=== PATIENT | female | born 1955 | race Caucasian/White ===

== ENCOUNTER 2017-03-31 15:34 | Observation (INO) | payer MEDICAID, SELFPAY ==
[2017-03-31] VITALS (9 sets, daily range): BP systolic 96–133; BP diastolic 50–69; PULSE 57–82; RESP 16–146; TEMP 36.2–36.9; O2SAT 96–100; BMI 24.5
--- NOTE | 2017-03-31 10:02 | EKG12_ITS ---
Test Reason : PRE OP Blood Pressure : / mmHG Vent. Rate : 082 BPM Atrial Rate : 082 BPM P-R Int : 170 ms QRS Dur : 084 ms QT Int : 364 ms P-R-T Axes : 072 -02 042 degrees QTc Int : 425 ms Normal sinus rhythm Normal ECG When compared with ECG of 28-JUL-2014 15:17, No significant change was found Confirmed by JEAN CLAUDE LOPEZ ([id number]), avid editor CHRISSIE AYÑEZ ([id number] on 04/05/2017 2:23:11 PM Referred By: MYA Confirmed By:JEAN CLAUDE LOPEZ
[2017-03-31] MEDS: Phenazopyridine 95 MG Tablet 190 MG PO (10:15)
[2017-03-31 10:50] LABS: Hematocrit 36.4 % (37-47); Mean Corpuscular Hgb 31.1 pg (27.0-32.0); Mean Corpuscular Volume 94.3 fL (81-99); Mean Platelet Vol. 8.3 fl (6.2-12.0); Platelet Count 152 K/mm3 (150-450); RBC Distribution Width CV 13.5 % (11.6-14.6); RBC Distribution Width SD 46.3 fl (35.1-43.9); Red Blood Count 3.86 M/mm3 (4.2-5.4); White Blood Count 3.9 K/mm3 (4.4-11.0)
[2017-03-31 10:51] LABS: Scan Indicated on CBC? Y/N NO
[2017-03-31 10:57] LABS: International Normalized Ratio 1.1; Prothrombin Time (Protime)PT. 13.6 SECONDS (11.7-14.9)
[2017-03-31 10:58] LABS: Partial Thromboplast Time 31.6 Seconds (24.1-36.2)
[2017-03-31 11:03] LABS: AST(SGOT) 13 U/L (15-37); Albumin, Serum 3.5 g/dL (3.4-5.0); Alkaline Phosphatase 73 U/L (45-117); Globulin 3.3 g/dL (2.3-3.5); Protein, Total 6.8 g/dL (6.4-8.2)
[2017-03-31 11:04] LABS: Alanine Aminotransfer ALT/SGPT 17 U/L (12-78); Bilirubin, Direct 0.11 mg/dL (0.00-0.30)
[2017-03-31] MEDS: Bupiv/Epi 0.5% Mpf 30 ML Vial (15:59)
[2017-03-31] MEDS: Ketorolac 30 MG/ML Syringe IV ×2 (16:01→21:32)
[2017-03-31] MEDS: HYDROcodone Bitartrate/Apap 5/325 Tablet PO (18:39)
[2017-03-31] MEDS: 0.9% NaCl Peripheral Flush Adult/Peds IV (21:32)
[2017-03-31] MEDS: Lactated Ringers 1,000 ML 75 ML IV (22:29)
[2017-04-01 02:15] VITALS: BP 121/68; PULSE 78; RESP 16; TEMP 37; O2SAT 98
[2017-04-01] MEDS: HYDROcodone Bitartrate/Apap 5/325 Tablet PO ×2 (02:26→09:23)
[2017-04-01] MEDS: Ketorolac 30 MG/ML Syringe IV (05:37)
--- NOTE | 2017-04-01 07:02 | PCM.DC.GS ---
Discharge Diet: No Restrictions Discharge Activity: Return to Normal Activity, May not drive while taking narcotic pain medications. May shower in (days): 1 Weight Bearing Status: Full weight bearing Call your doctor if your incision/area has: Continuous Slow Oozing, Sudden Increased Bleeding, Increased Pain/ Swelling, Increased Redness, Foul Smelling Discharge, Swelling at the incision site Call your doctor if you observe: Fever of 101 or Higher, Coldness, Increased Pain, Numbness or Tingling, Change in Color, Inability to have a bowel movement, Using more than one pad per hour, Shortness of breath, Dizziness, Fainting spells, Swelling in the ankles, Chest pain, Prolonged hiccoughing, Increased palpitations (irregular heartbeat), Calf discomfort, Uncontrolled pain Suture Line Care: Avoid Pulling/Pushing Cleanse incision/area with: Soap & Water Catheter: Murray to leg bag, Murray to large bag - at night Allergies/Adverse Reactions: Allergies No Known Allergies Allergy (Verified 03/24/17 11:01) Medications to take at Discharge Multivitamins,Ther W-Minerals [Multivitamin With Minerals] 1 tablet PO DAILY 07/28/14 Sertraline HCl [Zoloft] 50 mg PO DAILY 07/28/14 Iron Polysaccharide Complex [Ferrex 150] 150 mg PO DAILYCM 02/26/16 Lorazepam [Ativan] 0.5 mg PO Q6H PRN PRN 02/29/16 Oxybutynin [Ditropan] 5 mg PO BID 06/01/16 DiphenhydrAMINE [Benadryl] 25 mg PO BID PRN PRN 03/24/17 Estradiol [Estrace Vaginal Cream] 1 dose VAGINAL DAILY 03/24/17 Levocetirizine Dihydrochloride [Xyzal] 5 mg PO DAILY 03/31/17 Please follow up with your Primary Care Physician in: Sandy Garza MD [phone] When: 3-4 weeks for cystoscopy and murray removal in [place] Office Proposed Discharge Date: 04/01/17
--- NOTE | 2017-04-01 07:07 | DCINST_ITS ---
Discharge Diet: No Restrictions Discharge Activity: Return to Normal Activity, May not drive while taking narcotic pain medications. May shower in (days): 1 Weight Bearing Status: Full weight bearing Call your doctor if your incision/area has: Continuous Slow Oozing, Sudden Increased Bleeding, Increased Pain/ Swelling, Increased Redness, Foul Smelling Discharge, Swelling at the incision site Call your doctor if you observe: Fever of 101 or Higher, Coldness, Increased Pain, Numbness or Tingling, Change in Color, Inability to have a bowel movement , Using more than one pad per hour, Shortness of breath, Dizziness, Fainting spells, Swelling in the ankles, Chest pain, Prolonged hiccoughing, Increased palpitations (irregular heartbeat), Calf discomfort, Uncontrolled pain Suture Line Care: Avoid Pulling/Pushing Cleanse incision/area with: Soap & Water Catheter: Murray to leg bag, Murray to large bag - at night Allergies/Adverse Reactions: Allergies No Known Allergies Allergy (Verified 03/24/17 11:01) Medications to take at Discharge Multivitamins,Ther W-Minerals [Multivitamin With Minerals] 1 tablet PO DAILY Sertraline HCl [Zoloft] 50 mg PO DAILY 07/28/14 Iron Polysaccharide Complex [Ferrex 150] 150 mg PO DAILYCM 02/26/16 Lorazepam [Ativan] 0.5 mg PO Q6H PRN PRN 02/29/16 Oxybutynin [Ditropan] 5 mg PO BID 06/01/16 DiphenhydrAMINE [Benadryl] 25 mg PO BID PRN PRN 03/24/17 Estradiol [Estrace Vaginal Cream] 1 dose VAGINAL DAILY 03/24/17 Levocetirizine Dihydrochloride [Xyzal] 5 mg PO DAILY 03/31/17 Please follow up with your Primary Care Physician in: Sandy Garza MD When: 3-4 weeks for cystoscopy and murray removal in [place] Office Proposed Discharge Date: 04/01/17
--- NOTE | 2017-04-01 07:07 | PCM.OP.BLANK ---
Problem List (1) Vesicovaginal fistula Status: Chronic Operative Report Date of Procedure: 03/31/17 Procedure: Vesicovaginal Fistula Repair via Laparotomy and cystoscopy Findings: Bilateral UO's patent at completion of procedure. Dime size vesicovaginal fistula noted at apex of irradiated vagina. EBL: 50 cc Specimens: None Drains: Murray Anesthesia: GETA Surgeon: Sandy Graza MD [employer] Operations Consultant: LATASHA Stern Procedure details: The patient was taken to the operating room where general anesthesia was initiated. The patient was placed in dorsal lithotomy position and prepped and draped in sterile fashion. A surgical time-out occurred. An pelvic exam was performed and the patient was noted to have a heavily irradiated vagina with little laxity. The vagina was cone shaped and a dime sized vesicovaginal fistula was noted at the apex of the vagina. Cystoscopy was performed and a pickup was passed thru the fistula into the bladder confirming the communication. Both ureteral orifices were noted to be spilling Pyridium stained urine bilaterally. The decision was made to proceed with a laparotomy. A Pfannenstiel low abdominal incision was made with a 10 blade scalpel. The incision was carried through the subcutaneous tissue and the fascia was incised. The fascial incision was extended bilaterally and the rectus abdominus muscle was dissected off the fascial superiorly and inferiorly with Metzenbaum scissors and electrocautery. The muscle was split in the middle and peritoneum was entered using Metzenbaum scissors. The bowel was packed in the upper abdomen exposing the cul-de-sac and sacral promontory and an O'Huber/O'Erik retractor was used for retraction. The bladder was then identified and was noted to be densely adhesed to the vagina below. After several failed attempts to dissect the bladder of the vagina, two 2-O silk sutures were passed through the dome of the bladder for traction and an incision was made in the bladder dome until the bladder was entered. The incision was carried down to the level of the vagina where the fistula was identified sitting between the two ureteral orifices. The bladder and fistula were then undermined with scissors and scalpel sharply to free up the edges for a tension free closure. Several interrupted 4-O Vicryl sutures were used to close the incision starting at the apex of the fistula (edges were freshened sharply) and the ureteral orifices were observed for spill. No spill was seen from the left ureter so the sutures were removed. The ureter on the left began to spill again. Two whistle tip catheters were passed into the urethral orifices bilaterally in order to visualize the orifices with ease. The bladder mucosa was then closed with interrupted 4-O Vicryl suture. Prior to closing the last of the bladder incision, the Whistle tip catheters were removed. The bladder serosa was then closed in a similar fashion. Hemostasis was obtained. The bladder appeared to be water tight. While the surgical device sales representative observed from above, a cystoscopy was passed and with D50 50 cc injected into the bladder, bilateral efflux of urine was seen from each ureteral orifice. The bladder distended and appeared water tight abdominally. All the packing was removed. The fascia was closed using 0 Vicryl in a running fascia from both sides and was tied in the middle. Subcutaneous tissue was closed using 3-0 Vicryl and the skin was closed using 4-0 Monocryl in subcuticular fashion. Anesthesia was discontinued. All needle, instrument, and sponge counts were correct x 2. The patient was taken to recovery room in stable condition draining clear urine from her Murray catheter. The vagina was packed with Kerlex gauze soaked in estrogen cream. Anesthesia was discontinued. All needle, instrument, and sponge counts were correct x 2. The patient was taken to recovery room in stable condition draining reddish yellow urine from her murray catheter.
--- NOTE | 2017-04-01 07:25 | PCM.PN.SRG ---
Subjective: Doing well POD 1 s/p vesicovaginal fistula repair via laparotomy and cystoscopy - Physical Exam General: Alert, Oriented x3, Cooperative, No apparent distress HEENT: Atraumatic, Normocephalic Oral: Moist Mucosa Neck: Supple Lungs: Clear to auscultation, Normal air movement, No rhonchi, No wheeze, No rales Cardiovascular: Regular rate, Regular Rhythm, Normal S1, No murmurs, No rub noted, No Gallop Abdomen: Bowel Sounds Present, Soft, Non Tender, Non-Distended Extremities: No clubbing, No cyanosis, No edema Skin: No rashes, No breakdown, Incision - Clean, dry and intact Musculoskeletal: No Tenderness to Palpation of Joints or Extremities Vital Signs Temp Pulse Resp BP Pulse Ox 98.6 F 78 16 121/68 98 04/01/17 02:15 04/01/17 02:15 04/01/17 02:15 04/01/17 02:15 04/01/17 02:15 Oxygen Delivery Method Room Air Weight: 60.9 kg Body Mass Index (BMI) 24.5 Intake and Output for Last 24 Hours 03/30/17 03/31/17 04/01/17 23:59 23:59 23:59 Intake Total 2960 775 Output Total 800 1400 Balance 2160 -625 Laboratory Tests Past 24 Hrs 03/31/17 03/31/17 03/31/17 10:40 10:40 10:40 WBC 3.9 L RBC 3.86 L Hgb 12.0 Hct 36.4 L MCV 94.3 MCH 31.1 MCHC 33.0 RDW 13.5 RDW Differential 46.3 H Plt Count 152 MPV 8.3 PT 13.6 INR 1.1 APTT 31.6 Total Bilirubin 0.40 Direct Bilirubin 0.11 AST 13 L ALT 17 Alkaline Phosphatase 73 Total Protein 6.8 Albumin 3.5 Globulin 3.3 Assessment/Plan Doing well POD1. Discharge home today with abdominal binder, murray bag and large bag. Rx on chart. Followup in 3-4 weeks for cystoscopy and Murray removal.
[2017-04-01 08:15] VITALS: BP 100/51; PULSE 80; RESP 18; TEMP 36.8; O2SAT 98
[2017-04-01] MEDS: Sertraline 50 MG Tablet PO (09:30)
[2017-04-01 09:32] VITALS: BP 100/57; PULSE 80; RESP 18; TEMP 36.8; O2SAT 98
--- NOTE | 2017-04-04 14:03 | CASEMGMT ---
Post-discharge call completed. Patient expressed understanding of home care and discharge instructions.
== END 2017-04-01 10:04 | disposition home or self-care (01) ==
PROVIDERS: Anesthesiology; Admitting Provider Obstetrics & Gynecology; Family Provider Family Medicine; PCP Family Medicine; Visit Provider Obstetrics & Gynecology
DX: N82.0 Vesicovaginal fistula (principal); F41.9 Anxiety disorder, unspecified; F32.9 Major depressive disorder, single episode, unspecified; D50.9 Iron deficiency anemia, unspecified; Z87.891 Personal history of nicotine dependence; Z85.41 Personal history of malignant neoplasm of cervix uteri; Z85.89 Personal history of malignant neoplasm of other organs and systems; Z79.899 Other long term (current) drug therapy
CPT/HCPCS: 00860; 51900; 80076; 85027; 85610; 85730; 93005; 96361; 96374; 96376; 96523; 99218; J7120; A4216; C1758; G0378; G0379; J1940; J2405

== ENCOUNTER 2017-07-13 10:00 | Outpatient (RCR) | payer MEDICAID, SELFPAY ==
[2017-07-10 00:41] VITALS: BP 128/62; PULSE 78; RESP 16; TEMP 36.4
[2017-07-11 11:59] VITALS: BP 119/75; BP 120/73; PULSE 92; RESP 16; TEMP 37; TEMP 37.1
--- NOTE | 2017-07-11 13:21 | HBO.PN.PCM_ITS ---
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 Tolerance of hyperbaric oxygen therapy: Hyperbaric oxygen therapy was administered as per the facility's protocol. Today represents the 34th such hyperbaric oxygen session. The patient tolerated hyperbaric oxygen therapy well , without complications or complaints. Upon emergence from the hyperbaric chamber, the patient's vital signs remained stable. The patient was discharged in good condition. 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 radiation therapy (Chronic) History of cancer chemotherapy (Chronic) Hx of cervical cancer (Chronic) Vaginal bleeding (Chronic) Vesicovaginal fistula (Chronic) Allergies/Adverse Reactions: Allergies No Known Allergies Allergy (Verified 05/05/17 12:44) Home Medications: Ambulatory Orders Medication Instructions Recorded Multivitamins,Ther W-Minerals 1 tablet PO DAILY 07/28/14 [Multivitamin With Minerals] Sertraline HCl [Zoloft] 50 mg PO DAILY 07/28/14 Iron Polysaccharide Complex 150 mg PO DAILYCM 02/26/16 [Ferrex 150] Lorazepam [Ativan] 0.5 mg PO Q6H PRN PRN 02/29/16 Oxybutynin [Ditropan] 5 mg PO BID 06/01/16 DiphenhydrAMINE [Benadryl] 25 mg PO BID PRN PRN 03/24/17 Levocetirizine Dihydrochloride 5 mg PO DAILY 03/31/17 [Xyzal] Maternal Family History: No pertinent history Paternal Family History: No pertinent history Smoking Status: Former smoker Tobacco Use: Non-smoker Physical Exam Vital Signs Temp Pulse Resp BP 97.6 F L 78 16 128/62 H 07/10/17 00:41 07/10/17 00:41 07/10/17 00:41 07/10/17 00:41 General: Alert, Oriented x3, Cooperative, No apparent distress, Well developed, Well nourished HEENT: Atraumatic, PERRLA, EOMI, Normocephalic Lungs: Normal air movement Psych/Mental Status: Normal Affect, Appropriate, Alert and oriented to time, place, person, mood and affect Assessment/Plan The patient appears to be doing well. Hyperbaric oxygen therapy will continue as per the patient's medical plan.
[2017-07-12 11:00] VITALS: BP 124/71; BP 134/85; PULSE 79; PULSE 87; RESP 16; RESP 20; TEMP 36.3; TEMP 37.6
--- NOTE | 2017-07-12 17:40 | HBO.PN.PCM_ITS ---
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 Tolerance of hyperbaric oxygen therapy: Hyperbaric oxygen therapy was administered as per the facility's protocol. The patient tolerated hyperbaric oxygen therapy well, without complications or complaints. Upon emergence from the hyperbaric chamber, the patient's vital signs remained stable. The patient was discharged in good condition. 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 radiation therapy (Chronic) History of cancer chemotherapy (Chronic) Hx of cervical cancer (Chronic) Vaginal bleeding (Chronic) Vesicovaginal fistula (Chronic) Allergies/Adverse Reactions: Allergies No Known Allergies Allergy (Verified 05/05/17 12:44) Home Medications: Ambulatory Orders Medication Instructions Recorded Multivitamins,Ther W-Minerals 1 tablet PO DAILY 07/28/14 [Multivitamin With Minerals] Sertraline HCl [Zoloft] 50 mg PO DAILY 07/28/14 Iron Polysaccharide Complex 150 mg PO DAILYCM 02/26/16 [Ferrex 150] Lorazepam [Ativan] 0.5 mg PO Q6H PRN PRN 02/29/16 Oxybutynin [Ditropan] 5 mg PO BID 06/01/16 DiphenhydrAMINE [Benadryl] 25 mg PO BID PRN PRN 03/24/17 Levocetirizine Dihydrochloride 5 mg PO DAILY 03/31/17 [Xyzal] Maternal Family History: No pertinent history Paternal Family History: No pertinent history Smoking Status: Former smoker Tobacco Use: Non-smoker Physical Exam Vital Signs Temp Pulse Resp BP 99.6 F H 87 16 124/71 H 07/12/17 11:00 07/12/17 11:00 07/12/17 11:00 07/12/17 11:00 General: Alert, Oriented x3, Cooperative, No apparent distress HEENT: Atraumatic, Normocephalic Lungs: Normal air movement Cardiovascular: Regular rate Psych/Mental Status: Normal Affect Assessment/Plan The patient appears to be doing well. Hyperbaric oxygen therapy will continue as per the patient's medical plan.
[2017-07-13 09:57] VITALS: BP 116/66; BP 137/77; PULSE 75; PULSE 99; RESP 16; RESP 20; TEMP 36.1; TEMP 36.6
--- NOTE | 2017-07-13 10:54 | HBO.PN.PCM_ITS ---
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 Tolerance of hyperbaric oxygen therapy: Hyperbaric oxygen therapy was administered as per the facility's protocol. The patient tolerated hyperbaric oxygen therapy well, without complications or complaints. Upon emergence from the hyperbaric chamber, the patient's vital signs remained stable. The patient was discharged in good condition. 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 radiation therapy (Chronic) History of cancer chemotherapy (Chronic) Hx of cervical cancer (Chronic) Vaginal bleeding (Chronic) Vesicovaginal fistula (Chronic) Allergies/Adverse Reactions: Allergies No Known Allergies Allergy (Verified 05/05/17 12:44) Home Medications: Ambulatory Orders Medication Instructions Recorded Multivitamins,Ther W-Minerals 1 tablet PO DAILY 07/28/14 [Multivitamin With Minerals] Sertraline HCl [Zoloft] 50 mg PO DAILY 07/28/14 Iron Polysaccharide Complex 150 mg PO DAILYCM 02/26/16 [Ferrex 150] Lorazepam [Ativan] 0.5 mg PO Q6H PRN PRN 02/29/16 Oxybutynin [Ditropan] 5 mg PO BID 06/01/16 DiphenhydrAMINE [Benadryl] 25 mg PO BID PRN PRN 03/24/17 Levocetirizine Dihydrochloride 5 mg PO DAILY 03/31/17 [Xyzal] Maternal Family History: No pertinent history Paternal Family History: No pertinent history Smoking Status: Former smoker Tobacco Use: Non-smoker Physical Exam Vital Signs Temp Pulse Resp BP 97.8 F 99 20 H 137/77 H 07/13/17 09:57 07/13/17 09:57 07/13/17 09:57 07/13/17 09:57 General: Alert, Oriented x3, Cooperative HEENT: Atraumatic, Normocephalic Lungs: Normal air movement Cardiovascular: Tachycardic Psych/Mental Status: Normal Affect Assessment/Plan The patient appears to be doing well. Hyperbaric oxygen therapy will continue as per the patient's medical plan.
--- NOTE | 2017-07-18 17:02 | WC ---
Seen by Dr. Mathis prior HBO treatment 07/17/17. HBO placed on hold till CT or MRI can be obtained. She was instructed to call her Oncology Physician. Call received from her on Monday pertaining to swelling and harness to the left side of her neck. Previously (2015) lymph node was biopsied + for carcinoma which is now giving her a matter of concern. She has also been dealing with draining sinus for the last 10 days which has also caused some equilibrating issues during HBO treatment to the left ear. (Taking Flonase, and using Saline Nasal [place]). Call this morning: Ultrasound scheduled to the left neck Monday 07/24 @ 10:00. If any positive findings, CT Scan will be performed. Dr. Callahan made aware of above.
--- NOTE | 2017-07-26 13:53 | WC ---
LEFT NECK MASS UPDATE: Ultrasound performed Monday 07/24 and results sent in (Currently in Chart and a copy sent to her PCP-Dr. Maria G Callahan). Plan for biopsy at the [facility] next Monday to determine etiology. HBO remains on hold for now. Patient informed her appointment time will probably move.
== END 2017-08-09 23:59 ==
LOC: WC 10:00
PROVIDERS: Family Provider Family Medicine; PCP Family Medicine; Visit Provider Internal Medicine
DX: L59.8 Other specified disorders of the skin and subcutaneous tissue related to radiation (principal); Y84.2 Radiological procedure and radiotherapy as the cause of abnormal reaction of the patient, or of later complication, without mention of misadventure at the time of the procedure; N30.40 Irradiation cystitis without hematuria; N82.0 Vesicovaginal fistula; K62.7 Radiation proctitis; Z85.41 Personal history of malignant neoplasm of cervix uteri; Z79.899 Other long term (current) drug therapy; Z87.891 Personal history of nicotine dependence
CPT/HCPCS: 99183; G0277